=== PATIENT | female | born 1970 | race Caucasian/White ===

== ENCOUNTER 2018-07-01 22:18 | Emergency (ER) | payer SELFPAY ==
[2018-07-01] MEDS ORDERED: Ondansetron ODT 4 MG TAB ONE ×2 (22:28→22:53)
[2018-07-01] MEDS ORDERED: Ketorolac Tromethamine 30 MG/ML VIAL ONE (22:45)
== END 2018-07-01 23:30 | disposition home or self-care (01) ==
LOC: NAV ERS 22:18
DX: S01.01XA Laceration without foreign body of scalp, initial encounter (principal); F10.129 Alcohol abuse with intoxication, unspecified; F41.9 Anxiety disorder, unspecified; F17.210 Nicotine dependence, cigarettes, uncomplicated; Z79.899 Other long term (current) drug therapy; W01.10XA Fall on same level from slipping, tripping and stumbling with subsequent striking against unspecified object, initial encounter
CPT/HCPCS: 12001; 96372; J1885; Q0162